=== PATIENT | male | born 1970 | race Caucasian/White ===

== ENCOUNTER 2021-01-21 12:12 | Emergency (ER) | payer BC, SELFPAY ==
--- NOTE | ~2021-01-21 | CT_ITS ---
EXAMINATION: CT ANGIOGRAM OF THE CHEST WITH AND WITHOUT CONTRAST (CT PULMONARY ANGIOGRAM FOR PE) CLINICAL INFORMATION: Reason for Exam Cough, shortness of breath x2 weeks, hemoptysis r/0 PE,TB COMPARISON: None TECHNIQUE: Prior to contrast administration, noncontrast localization images were obtained. Subsequently, multidetector volumetric imaging was performed from the thoracic inlet to below the diaphragms following the administration of 80 mL Omnipaque 350 intravenous contrast. No contrast reaction reported Sagittal, coronal, and MIP oblique sagittal reformatted images were obtained on the CT workstation, uploaded to PACS, and reviewed. This CT examination was performed using dose optimization techniques as appropriate, variously including the following: *Automated exposure control *Adjustment of mA and/or kV according to patient size (this includes techniques or standardized protocols for targeted exams where dose is matched to indication/reason for exam; i.e. extremities or head) *Use of iterative reconstruction technique Total exam dose-length product 300 mGy-cm FINDINGS: QUALITY OF STUDY/CONTRAST BOLUS: Satisfactory. PULMONARY ARTERIES: No central or segmental pulmonary emboli. THORACIC AORTA: No aneurysm or dissection. LUNG: No focal consolidation, nodules or masses. PLEURA: No pleural effusion or pneumothorax. MEDIASTINUM: Normal heart size. No pericardial effusion. There are 1 cm subcarinal and aortic window lymph nodes. No evidence of septal bowing or right heart strain. CHEST WALL/AXILLA: No axillary or internal mammary lymphadenopathy. OSSEOUS STRUCTURES: No lytic or sclerotic process seen. UPPER ABDOMEN: Visualized liver, spleen, pancreas and bilateral adrenal glands are unremarkable. No radiopaque gallstones seen. No reflux of contrast into the hepatic veins to suggest elevated right heart pressures. CT/CT angio chest PE protocol IMPRESSION: No evidence of PE. No evidence of aortic dissection or aneurysm. Borderline mediastinal lymph nodes. Clear lungs. VTE: negative
[2021-01-21 12:42] VITALS: BP 148/91; PULSE 88; RESP 16; TEMP 37.2; O2SAT 97; BMI 28.1
--- NOTE | 2021-01-21 13:18 | ED.GENADULT ---
HPI - General Adult General Chief complaint: Upper Respiratory Symptoms Stated complaint: R/O TB Time Seen by Provider: 01/21/21 12:54 Source: patient Mode of arrival: ambulatory Limitations: no limitations History of Present Illness HPI narrative: 50-year-old male referred to the emergency department from [facility] for evaluation of hemoptysis to rule out tuberculosis. The patient states he has been sick for approximately 2 weeks. He states he has felt hot and cold and has had intermittent fevers. He states that he has a cough which is been productive of thick yellow phlegm. He states that over the past 2 days he has noted small spots of blood in his phlegm. He states that he is feeling short of breath and having dyspnea on exertion. He denies pleuritic chest pain. He has not had any pain or swelling in his lower extremities. The patient states he has had 2-COVID-19 tests, 1 3 days prior and 1 today at [facility]. He has not been vaccinated for COVID-19. The patient is a long-driver merchandiser. 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 He states that he does this multiple times a week. The patient has not left the country and has not had any foreign travel. He has not been in longterm. He denies injection drug use. He has not been homeless. He has not had any known tuberculosis exposure. Related Data Previous Rx's Medication Instructions Recorded azithromycin [Zithromax Z-Roscoe] See Rx Instructions PO .COMPLEX #6 01/21/21 tab cefuroxime axetil 500 mg PO BID 5 Days #10 tab 01/21/21 Allergies Allergy/AdvReac Type Severity Reaction Status Date / Time No Known Allergies Allergy Verified 01/21/21 12:45 Review of Systems Review of Systems: Yes all other systems are reviewed and are negative [facility] Past Medical History [facility] Narrative: Past medical history: None . Past surgical history: None. Social history: The patient is a long-driver merchandiser. He denies tobacco, alcohol and drug use. Medical History No known health problems Social History Social History Alcohol intake: current Alcohol intake frequency: holidays/special occasions only Patient Tobacco Use Status: Never used Tobacco Use of substances other than those prescribed or required for medical reasons: No Advance Directives: No Advance Directives Information Provided: Yes Physical Exam Vital Signs: Vital Signs: Last Vital Signs Temp 99 F 01/21/21 12:42 Pulse 88 01/21/21 12:42 Resp 16 01/21/21 12:42 BP 148/91 H 01/21/21 12:42 Pulse Ox 97 01/21/21 13:33 Body Mass Index 28.1 Const: General: cooperative and healthy appearing Orientation/consciousness: oriented to person and oriented to place Limitations: no limitations HENMT: Head: Yes normal to inspection, Yes normocephalic and Yes atraumatic Ears: external ears normal General nose exam: Normal external nose present Face and sinus: Yes normal facial exam Mouth: Normal oral and palatal mucosa present Throat: Yes posterior oropharynx normal Eyes: Periorbital: periorbital findings normal Eyelids: Yes eyelids normal Conjunctivae: conjunctivae normal Sclerae: sclerae normal Corneas: corneas normal Pupils: Equal, round and reactive pupils present Direct Ophthalmoscopy: normal light reflex Neck: Neck: Yes full ROM, Yes no lymphadenopathy, Yes no meningeal signs, Yes trachea midline and Yes supple Chest: Chest palpation & inspection: normal inspection of the chest and normal palpation of entire chest wall Resp: Effort & Inspection: normal respiratory effort and able to speak in complete sentences Auscultation: clear to auscultation bilaterally Cardio: Rate: regular rate Rhythm: regular rhythm Heart sounds: S1 normal heart sound present, S2 normal heart sound present and no murmurs GI: Inspection: Yes normal to inspection Palpation (GI): Soft to palpation, nontender, no guarding, not rigid and No hepatosplenomegaly present : General: Yes no CVA tenderness Back/Spine/Pelvis: Back: no CVA tenderness Cervical Spine: normal cervical lordosis Thoracic/Lumbar Spine: thoracic and lumbar spine normal to inspection Skin: Lesions: no lesions Rashes: no rashes Wounds: no wounds Neuro: General: oriented to person, oriented to place and no meningeal signs Cranial nerves: Yes Equal, round and reactive pupils present Cognition (Neuro): normal cognition Motor exam (neuro): 5/5 motor strength present throughout Extrem: General: Yes normal to inspection and Yes full ROM Psych: Appearance: well kempt Mental Status: mental status grossly normal Speech and movement: Normal speech and movement present Affect: normal affect Attitude: cooperative Thought process: Normal thought process present Thought content: Normal thought content present Course Course Course Narrative: 50-year-old male who presents emergency department for evaluation of 2 weeks subjective fever, chills and productive cough with 2 days of a hemoptysis with only small spots of blood in his sputum. The patient was evaluated at [facility] and then referred to the emergency department for evaluation of hemoptysis. The patient has no significant risk factors for tuberculosis, he does have significant risk factors for pulmonary embolism however. The patient's vital signs are stable. I did order a CT pulmonary angiogram to rule out PE and evaluate the patient for possible pneumonia, tuberculosis or other sources of his hemoptysis. 1513: Patient's CT pulmonary angiogram chest revealed no acute pulmonary embolism or other acute causes for his symptoms. Patient's presentation is consistent with acute bronchitis and I did discuss this with him. The patient will be treated with cefuroxime 500 mg twice a day for 5 days and azithromycin Z-Roscoe. He was given verbal and printed instructions and discharged home. Discharge Plan Discharge Clinical Impression: Bronchitis, Hemoptysis Patient Disposition: Home, Self-Care Instructions: Acute Bronchitis (ED) Additional Instructions: The CT scan of your chest with IV contrast did not reveal any evidence for a pulmonary embolism (blood clot to lungs), tuberculosis, or pneumonia. Your symptoms are consistent with bronchitis which is an infection of your breathing tubes. Bronchitis can sometimes cause bloody sputum as well. Take cefuroxime 500 mg pills, 1 pill twice a day for x5 days. Take Zithromax (azithromycin) Z-Roscoe, 2 pills on day 1 and then 1 pill each day for total of 5 days. Take Tylenol (acetaminophen) 500 mg pills, 2 pills every 4 to 6 hours as needed for pain. Follow-up with your doctor in 2 days. Please return to the emergency department if your symptoms get worse or if you develop any symptoms that are concerning to you. Prescriptions: New cefuroxime axetil 500 mg tablet 500 mg PO BID 5 Days Qty: 10 RF: 0 azithromycin [Zithromax Z-Roscoe] 250 mg tablet See Rx Instructions PO .COMPLEX Qty: 6 RF: 0
[2021-01-21 13:33] VITALS: O2SAT 97
--- NOTE | 2021-01-21 14:02 | PC.NURSE ---
In CT at this time
[2021-01-21] MEDS: iohexoL 350 MG/ML 100 ML INFUS..BTL 65 ML IV (14:44)
[2021-01-21 15:48] VITALS: BP 128/88
== END 2021-01-21 15:35 | disposition home or self-care (01) ==
PROVIDERS: Emergency Provider Emergency Medicine Emergency Medical Services
DX: J20.9 Acute bronchitis, unspecified (principal); R04.2 Hemoptysis; R50.9 Fever, unspecified
CPT/HCPCS: 71275; 99284; Q9967

== ENCOUNTER 2024-01-28 12:45 | Outpatient (AMB) | payer BC, SELFPAY ==
--- NOTE | 2024-01-28 13:38 | MHC.OFFWIV ---
Intake Vital Signs 01/28/24 13:48 Height 5 ft 6 in Weight 186 lb BMI 30.0 BP 130/72 Blood Pressure Location Lt brachial Position Sitting Pulse 69 Pulse Source Pulse Oximeter Temp 97.7 F Temp Source Temporal Artery Scan Pulse Oximetry (%) 98 Oxygen Delivery Method Room Air Intake Visit Reasons: [employer] poison ALLIE Intake Note: pt is here today for poison allie started 4 weeks ago Patient Tobacco Use Status: Never used Tobacco Allergies No Known Allergies Allergy (Verified 01/28/24 13:51) Do you need a note to return to daycare/school/sports/work: No HPI HPI Comments History of Present Illness Details 53 y/o male patient who presents to walk in clinic with c/o rash on his lower extremities x 2 weeks. Pt believes he has Poison Allie Rash. [facility] Medical History No known health problems Social History Alcohol intake: current Alcohol intake frequency: holidays/special occasions only Patient Tobacco Use Status: Never used Tobacco Review of Systems Const All systems reviewed & are unremarkable except as noted in HPI and below Physical Exam Vital Signs: Last Vital Signs Temp 97.7 F 01/28/24 13:48 Pulse 69 01/28/24 13:48 BP 130/72 01/28/24 13:48 Pulse Ox 98 01/28/24 13:48 Oxygen Delivery Method Room Air 01/28/24 13:48 BMI result Body Mass Index 30.0 Skin Other: Macular papular rash lower extremities Assessment & Plan Assessment & Plan (1) Rash and nonspecific skin eruption: Code(s): R21 - Rash and other nonspecific skin eruption Plan: - Prescribed oral prednisone Medications: New prednisone 10 mg PO DAILY 7 tabs 0RF R21 - Rash and other nonspecific skin eruption prednisone 10 mg PO DAILY 7 tabs 0RF R21 - Rash and other nonspecific skin eruption prednisone 10 mg PO DAILY 7 tabs 0RF R21 - Rash and other nonspecific skin eruption Discontinued azithromycin (Zithromax Z-Roscoe) Discontinued Reason: Stopped on Transfer take 500 mg today (day 1), then 250 mg for 4 days (days 2-5) 6 tabs 0RF cefuroxime axetil Discontinued Reason: Patient Completed Course 500 mg PO BID 5 days 10 tabs 0RF Coding Level of Care Code New Pt Level 3 (31095) Diagnoses Rash and nonspecific skin eruption R21 Time Spent (min) 15
[2024-01-28 13:48] VITALS: BP 130/72; PULSE 69; TEMP 36.5; O2SAT 98
== END 2024-01-28 16:06 | disposition home or self-care (01) ==
PROVIDERS: Visit Provider Nurse Practitioner Family
DX: R21 Rash and other nonspecific skin eruption (principal)
CPT/HCPCS: 99203